=== PATIENT | female | born 1945 | race Caucasian/White ===

== ENCOUNTER → 2023-12-06 10:30 | Outpatient (REF) | payer MEDICARE, OTHER, SELFPAY | LOC: HWRAD 10:30 | PROVIDERS: ATTENDING PHYSICIAN Podiatrist; FAMILY PHYSICIAN Internal Medicine | DX: S90.31XA Contusion of right foot, initial encounter (principal); S90.32XA Contusion of left foot, initial encounter; M84.375A Stress fracture, left foot, initial encounter for fracture; M84.374A Stress fracture, right foot, initial encounter for fracture | CPT/HCPCS: 73700 ==